=== PATIENT | male | born 1960 | race Caucasian/White ===

== ENCOUNTER 2017-03-03 04:19 | Emergency (ER) | payer BC, OTHER ==
[~2017-03-03] VITALS: Ht 170.2 cm; Wt 76.2 kg
[~2017-03-03 04:19] MED LIST: AVELOX400 MG PO; CENTRUM SILVER1 EAC2 PO; CHLORZOXAZONE500 MG PO; IBUPROFEN 800800 M1 PO; NOHOMEMEDICATIONS; NORCO 5-325 TA1 EACH PO; ONDANSETRON HCL4 M2 PO; PHENERGAN 25 MG25 M1 PO; TOBRAMYCIN SULFA5 ML OP; TUSSIN DM MAX118 ML PO; ZPAK PO
[2017-03-03 04:57] LABS: URINE BILIRUBIN NEGATIVE (Negative); URINE BLOOD NEGATIVE (Negative); URINE COLOR YELLOW; URINE GLUCOSE-RANDOM* NEGATIVE (Negative); URINE KETONES NEGATIVE (Negative); URINE NITRITE NEGATIVE (Negative); URINE PROTEIN (DIPSTICK) NEGATIVE (Negative); URINE SPECIFIC GRAVITY >= 1.030 (1.003-1.035); URINE UROBILINOGEN 0.2 E.U./dl (0.2-1.0)
[2017-03-03 05:14] LABS: ABSOLUTE NEUTROPHILS 3.5 thou/uL (1.4-8.2); BASOPHILS 0.4 % (0.0-2.0); EOSINOPHILS 1.1 % (0.0-3.0); HEMATOCRIT 44.8 % (42.0-52.0); HEMOGLOBIN 15.8 gm/dL (14.0-18.0); LYMPHOCYTES 43.4 % (24.0-44.0); MCH 32.2 pg (26.0-34.0); MCHC 35.3 g/dL (28.0-37.0); MCV 91.1 fL (80.0-100.0); MONOCYTES 11.2 % (1.0-8.0); PLATELET COUNT 158 thou/uL (150-400); POLYS 43.9 % (36.0-66.0); RBC 4.91 mil/uL (4.50-6.00); WBC 7.9 thou/uL (4.0-11.0)
[2017-03-03 05:17] LABS: MANUAL DIFF NO
[2017-03-03 05:29] LABS: CALCIUM 9.6 mg/dL (8.5-10.1); CREATININE 1.1 mg/dL (0.7-1.3); POTASSIUM 3.5 mmol/L (3.5-5.1)
[2017-03-03 05:37] LABS: ALBUMIN 3.8 g/dL (3.4-5.0); DIRECT BILIRUBIN 0.2 mg/dL (<0.1-0.3); TOTAL BILIRUBIN 0.5 mg/dL (<0.1-1.0); TOTAL PROTEIN 7.5 g/dL (6.4-8.2)
[2017-03-03] MEDS ORDERED: PRILOSEC 20 MG20 MG PO (07:10)
[2017-03-03] MEDS ORDERED: ZOFRAN ODT8 MG PO (07:10)
[2017-03-03] MEDS ORDERED: PENICILLIN VK500 M1 PO (07:10)
[2017-03-03 07:25] VITALS: BP 138/85
== END 2017-03-03 07:27 | disposition home or self-care (01) ==
LOC: ER 04:19
PROVIDERS: Emergency Medicine
DX: R10.84 Generalized abdominal pain (principal); R11.2 Nausea with vomiting, unspecified; K04.7 Periapical abscess without sinus; F17.210 Nicotine dependence, cigarettes, uncomplicated

== ENCOUNTER 2017-03-05 03:27 | Inpatient (IN) | payer BC, OTHER ==
[~2017-03-05] VITALS: Ht 170.2 cm; Wt 75.7 kg
[2017-03-05] VITALS (14 sets, daily range): BP systolic 103–152; BP diastolic 71–100
--- NOTE | ~2017-03-05 | O ---
[facility] [place] [address] OPERATIVE REPORT Name: SERGIO KURTZ Room #: 534-P [facility] [place] M.R.#: [id number] Admission: 03/05/17 Attend Phys: Krystian Calderon MD Discharge: 03/06/17 Date of : 64 Report #: [id number] THIS REPORT FOR: //name// CC: Igor Calderon DATE OF SERVICE: 03/05/2017 SURGEON: Justin Cordova MD [employer] OPERATOR: None. POSTOPERATIVE DIAGNOSIS: Acute cholecystitis. POSTOPERATIVE DIAGNOSES: 1. Acute gangrenous cholecystitis. 2. Intraabdominal adhesions. PROCEDURE: 1. Laparoscopic cholecystectomy with intraoperative cholangiogram. 2. Laparoscopic lysis of adhesions. ANESTHESIA: General endotracheal anesthesia and local anesthetic. ESTIMATED BLOOD LOSS: 25 mL. SPECIMEN: Gallbladder. COMPLICATIONS: None appreciated. INDICATIONS FOR PROCEDURE: This is a 56-year-old male patient who was seen in [place] [facility] with a 2-day history of abdominal pain without nausea, vomiting, fever or chills. He was seen 2 days prior when his symptoms began approximately 3 hours after eating pizza with nausea and vomiting. At that time, his CT scan was negative other than increased stool in his colon and his white blood cell count was normal. Upon return to the emergency room, the patient had an elevated white blood cell count. His abdominal ultrasound was negative. He underwent a PIPIDA scan, which showed nonfilling of the gallbladder despite morphine. Diagnosis is felt to be consistent with acute cholecystitis. The patient presents now for laparoscopic cholecystectomy with cholangiogram. OPERATIVE FINDINGS: Upon entrance into the abdominal cavity, there was significant scar tissue, which appeared to be both chronic and acute. The patient's liver showed mild cirrhosis changes. After taking down the adhesions, bile stained fluid was seen in the right upper quadrant. The gallbladder [facility] [address] [place] [address] OPERATIVE REPORT Name: NILAROSALBASERGIO VIEYRA Room #: 534-P [facility] M.R.#: [id number] Admission: 03/05/17 Attend Phys: Krystian Calderon MD Discharge: 03/06/17 Date of : 64 Report #: [id number] appeared to be acutely inflamed with areas of necrosis and near perforation. A 60 mL of bilious fluid was drained from the gallbladder in order to adequately grasped and retract it. The critical view consisting of the cystic artery, cystic duct and lower edge of the gallbladder forming a window through which the liver was visible was seen prior to clipping the cystic duct for cholangiogram. The cholangiogram showed no filling defects within the biliary tree. Contrast flowed freely into the duodenal sweep. Three clips remained on the cystic duct stump after its division. At the conclusion of the operation, sponge, needle, and instrument counts were correct. No other significant intraabdominal pathology was identified. DESCRIPTION OF PROCEDURE IN DETAIL: After the risks, benefits, and expectations of the operation were discussed in detail with the patient, informed consent was obtained. The patient was identified in the preoperative following area. He has been receiving scheduled IV antibiotics and was given additional antibiotics in line with the SCIP metrics. The patient was then taken to the operating room and he was placed in the supine position. SCDs were placed on the patient's bilateral lower extremities and pneumatic compression was initiated. The patient was then given IV sedation and he was intubated without incident. The patient's abdomen was then prepped and draped in the standard sterile fashion. A time-out was performed to identify the correct patient and procedure. Local anesthetic was infiltrated into the skin and subcutaneous tissue supraumbilically where a curvilinear incision was made with #15 blade scalpel. Dissection was carried down to the fascia. A small fascial incision was made and a 10 mm Visiport was placed intraperitoneally with a 0-degree angled laparoscope. Pneumoperitoneum was achieved with insufflation of carbon dioxide to 15 mmHg. A 30-degree angled laparoscope was then inserted. The patient was placed in the reverse Trendelenburg position, rotated to his left. Adhesions were seen and findings are as noted above. A subxiphoid 5-mm port was placed under direct visualization after local anesthetic was infiltrated into the skin and subcutaneous tissue and an appropriately sized incision was made. The ultrasonic dissector and grasper were each used to take down the adhesions present in the right upper quadrant of the abdomen in order to clear space for additional 5 mm ports in the right upper quadrant. After doing so, each port was placed in a similar fashion with local anesthetic and small transverse incisions. The ports were placed under direct visualization. The dome of the gallbladder was retracted in cephalad direction. The scar tissue and gallbladder peritoneum were then taken down with the ultrasonic dissector. The gallbladder was difficult to grasp and 60 mL of fluid was aspirated from the gallbladder using the Topel needle. This also improved visualization inferiorly. Dissection was carried out around the cystic artery and cystic duct to identify those 2 structures as the only 2 structures entering the gallbladder. A clip was placed on the cystic duct at its junction with the neck of the gallbladder. A ductotomy was created and a cholangiocatheter was [address] [address] OPERATIVE REPORT Name: SERGIO KURTZ Room #: 534-P [facility] IN .Melchor.#: [id number] Admission: 03/05/17 Attend Phys: Krystian Calderon MD Discharge: 03/06/17 Date of : 64 Report #: [id number] inserted. A cholangiogram was then performed with findings as noted above. The cholangiocatheter was then removed and the cystic duct was triply clipped and divided at the cystotomy using the ultrasonic dissector with a good seal on the duct. The cystic artery was divided with ultrasonic dissector as well with good hemostasis. The gallbladder was then dissected out the liver bed using both electrocautery and the ultrasonic dissector. After detaching the gallbladder from the liver bed, the gallbladder was placed in an Endopouch and removed through the supraumbilical port site fascial opening. An 0 PDS suture was then placed with the Jeff-Wendi fascial closure device using the needle tipped suture grasper. The suture was tagged and the port was replaced. The abdominal cavity was then reentered and the liver bed was examined for hemostasis. Electrocautery was used on the liver bed to achieve complete hemostasis. The liver bed was irrigated and suctioned as was all fluid within the abdominal cavity. The fluid returned clear with good hemostasis and no further bilious fluid. The supraumbilical port site fascial suture was tied under direct visualization to ensure no incorporation of intraabdominal content. The abdominal cavity was then desufflated and the ports were removed. Interrupted subcuticular 4-0 Monocryl sutures and Dermabond were used to close the skin incisions. The patient tolerated the procedure well. He was awakened, extubated, and taken to recovery room in stable condition with no apparent intraoperative complications. <ELECTRONICALLY SIGNED> By: Justin Cordova MD, FACS 03/07/17 1251 [id number] Justin Cordova MD, FACS /nt
--- NOTE | ~2017-03-05 | S ---
[facility] [place] [address] SURGICAL PATH RPT PROCEDURE Name: SERGIO BOTELLO Room #: 534-P DIS IN M.R.#: [id number] Admission: 03/05/17 Date of : 64 Discharge: 03/06/17 Report #: [id number] Path Case #: [id number] PATHOLOGY REPORT COLLECTION DATE: 03/05/2017 RECEIVED DATE: 03/06/2017 SUBMITTING PHYS: Dr. Justin Cordova OTHER PHYS: Dr. Kvng Woodward SPECIMEN(S) RECEIVED: A.Gallbladder * * * * * * * * * * * * FINAL DIAGNOSIS: Gallbladder, cholecystectomy: - Acute and chronic cholecystitis with focal mucosal erosion. (SKM:elaine; 03/07/2017) PATHOLOGIST: Tammie Drake M.D. REPORT ELECTRONICALLY SIGNED BY: Tammie Drake M.D. DATE/TIME: 03/07/2017 15:09 * * * * * * * * * * * * GROSS PATHOLOGY: Received in formalin labeled "Karlene Botello gallbladder," is a 7.4 x 4.4 x 2.2 cm, previously opened gallbladder with caro to green, rough, irregular, dusky serosal surfaces. Opening the gallbladder reveals brown to green, velvety, and partially eroded mucosa and an average wall thickness of 0.2 cm. Calculi are not present and no masses are noted grossly. Fuel Cell Designer sections from the body and fundus are submitted along with the proximal margin in cassette A1. (SDY; 03/06/2017) CLINICAL HISTORY: Cholecystitis INITIAL CPT CODE(S): A; 63981 Professional services performed by [facility] at [facility] [address], [place] [address] Technical services performed by [facility] at [address] [place] [address]. [facility] [address] [place] [address] SURGICAL PATH RPT PROCEDURE Name: SERGIO BOTELLO PAGE Room #: 534-P [facility] IN M.R.#: [id number] Admission: 03/05/17 Date of : 64 Discharge: 03/06/17 Report #: [id number] Path Case #: [id number] [facility] [address] [address] PHONE: [phone] DIRECTOR: Damon Jean-Baptiste M.D. * * * END OF REPORT * * *
[~2017-03-05 03:27] MED LIST changes: +PENICILLIN VK500 M1 PO; +PRILOSEC 20 MG20 MG PO; +ZOFRAN ODT8 MG PO
[2017-03-05 04:09] LABS: ABSOLUTE NEUTROPHILS 11.5 thou/uL (1.4-8.2); BASOPHILS 0.3 % (0.0-2.0); EOSINOPHILS 0.1 % (0.0-3.0); HEMATOCRIT 47.4 % (42.0-52.0); HEMOGLOBIN 16.6 gm/dL (14.0-18.0); LYMPHOCYTES 11.4 % (24.0-44.0); MCH 32.3 pg (26.0-34.0); MCV 92.2 fL (80.0-100.0); PLATELET COUNT 137 thou/uL (150-400); POLYS 82.2 % (36.0-66.0); RBC 5.13 mil/uL (4.50-6.00); RDW 13.1 % (10.5-14.5); WBC 13.9 thou/uL (4.0-11.0)
[2017-03-05 04:10] LABS: MANUAL DIFF NO
[2017-03-05 04:23] LABS: CALCIUM 9.2 mg/dL (8.5-10.1); CREATININE 1.2 mg/dL (0.7-1.3); POTASSIUM 3.7 mmol/L (3.5-5.1)
[2017-03-05 04:28] LABS: ALBUMIN 3.4 g/dL (3.4-5.0); DIRECT BILIRUBIN 0.6 mg/dL (<0.1-0.3); TOTAL BILIRUBIN 1.3 mg/dL (<0.1-1.0); TOTAL PROTEIN 7.3 g/dL (6.4-8.2)
[2017-03-06 03:29] VITALS: BP 122/83
[2017-03-06 05:52] LABS: ABSOLUTE NEUTROPHILS 9.4 thou/uL (1.4-8.2); BASOPHILS 0.1 % (0.0-2.0); LYMPHOCYTES 12.8 % (24.0-44.0); MCH 31.6 pg (26.0-34.0); MCHC 34.4 g/dL (28.0-37.0); MCV 91.9 fL (80.0-100.0); MONOCYTES 11.1 % (1.0-8.0); PLATELET COUNT 119 thou/uL (150-400); RBC 4.35 mil/uL (4.50-6.00); RDW 12.9 % (10.5-14.5); WBC 12.4 thou/uL (4.0-11.0)
[2017-03-06 05:54] LABS: HEMOGLOBIN 13.8 gm/dL (14.0-18.0)
[2017-03-06 05:55] LABS: MANUAL DIFF NO
[2017-03-06 05:56] LABS: CALCIUM 8.4 mg/dL (8.5-10.1); CREATININE 1.1 mg/dL (0.7-1.3); POTASSIUM 3.6 mmol/L (3.5-5.1)
[2017-03-06 08:00] VITALS: BP 94/63
[2017-03-06] MEDS ORDERED: LEVAQUIN 500 M500 M2 PO (16:07)
[2017-03-06 16:27] VITALS: BP 94/63
== END 2017-03-06 17:56 | disposition home or self-care (01) | DRG 419 ==
LOC: ER 03:27 → 5S 08:06 → EROBS 08:06 → 5S 08:56
PROVIDERS: Emergency Medicine; Nurse Practitioner Family
PROC: 0DNS4ZZ (ICD-10-PCS; principal; 2017-03-05)
PROC: 0FT44ZZ Resection of Gallbladder, Percutaneous Endoscopic Approach (ICD-10-PCS; principal; 2017-03-05)
PROC: BF131ZZ Fluoroscopy of Gallbladder and Bile Ducts using Low Osmolar Contrast (ICD-10-PCS; principal; 2017-03-05)
DX: K81.0 Acute cholecystitis (principal); F17.210 Nicotine dependence, cigarettes, uncomplicated; K66.0 Peritoneal adhesions (postprocedural) (postinfection); Z79.899 Other long term (current) drug therapy
CPT/HCPCS: 10785; 50010; 50101; 50249; 50411; 50555; 50558; 50962; 51489; 51975; 52265; 52266; 53307; 54022; 54118; 55245; 55317; 56462; 56525; 56526; 56970; 62110; 62900; 70005